=== PATIENT | male | born 1980 | race Caucasian/White ===

== ENCOUNTER 2019-12-08 14:06 | Emergency (ER) | payer OTHER, SELFPAY ==
[2019-12-08] VITALS (74 sets, daily range): BP systolic 127–177; BP diastolic 81–127; PULSE 57–112; RESP 10–28; TEMP 36.8; O2SAT 85–100
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
--- NOTE | ~2019-12-08 | CT_ITS ---
EXAMINATION: CT brain wo con DATE: 12/08/2019 14:48 INDICATION: Headache. Fall. TECHNIQUE: Computed tomography (CT) of the head was performed without intravenous contrast. The mA wa s adjusted according to patient size. Iterative reconstruction technique was employed. The dose-lengt h product was 605.33 mGy-cm. COMPARISON: Head CT 07/02/14 FINDINGS: There is low-attenuation in the anteroinferior frontal and temporal lobes, consistent with contusions. There is acute intraparenchymal hematoma in anteroinferior right frontal lobe. There is a small volume of acute hematoma at the anteroinferior aspect of the left frontal lobe. There is a sma ll focus of acute intracranial hematoma in anteroinferior left temporal lobe. There is acute subdural and subarachnoid hemorrhage anterior to right frontal and temporal lobes with greatest thickness of the extra-axial hemorrhage measuring 7 mm. There is no acute ischemic infarct or abnormal mass lesion . There is 5 mm leftward midline shift. The ventricles are normal in size. There is mild mucosal thic kening in the paranasal sinuses. The mastoid air cells are normal. The orbits are normal. IMPRESSION: 1. Hemorrhagic contusions of the anterior-inferior frontal and temporal lobes, worst at right frontal lobe. 2. 5 mm leftward midline shift. 3. I discussed this case with Dr. Valerio. Reviewed, dictated and finalized at location A.
--- NOTE | ~2019-12-08 | CT_ITS ---
EXAMINATION: CT cervical spine wo con DATE: 12/08/2019 14:53 INDICATION: Neck pain. Fall. TECHNIQUE: Computed tomography (CT) of the cervical spine was performed without intravenous contrast. Automated exposure control and iterative reconstruction technique were employed. The dose-length pro duct was 527.40 mGy-cm. COMPARISON: None FINDINGS: There is a stellate fracture of the occipital bone, predominantly on the left. Bone alignme nt is normal. Vertebral body heights and intervertebral disc heights are normal. There is multilevel mild facet joint osteoarthritis. No neural foraminal stenosis or central canal stenosis. IMPRESSION: 1. Stellate fracture of the occipital bone. 2. Mild facet joint osteoarthritis in cervical spine. Reviewed, dictated and finalized at location A.
[2019-12-08 14:36] LABS: Basophils Absolute Auto 0.1 K/mm3 (0.0-0.1); Basophils Percent Auto 0.3 % (0.2-1.2); Eosinophils Percent Auto 0.1 % (0-4.4); Hematocrit 51.5 % (42.0-52.0); Hemoglobin 18.1 g/dL (14.0-18.0); Immature Granulocyte Absolute 0.15 K/mm3 (0.00-0.031); Immature Granulocyte Percent A 0.9 % (0-0.5); Lymphocytes Absolute Auto 1.35 K/mm3 (0.9-3.2); Lymphocytes Percent Auto 7.7 % (18.3-44.2); Mean Corpuscular HGB Conc 35.1 g/dl (32-36); Mean Corpuscular Hemoglobin 31.9 pg (26-34); Mean Corpuscular Volume 90.8 fl (80-100); Mean Platelet Volume 10.7 fl (7.4-10.4); Monocytes Absolute Auto 1.7 K/mm3 (0.1-0.6); Monocytes Percent Auto 9.7 % (2.6-8.5); Neutrophils Absolute Auto 14.2 K/mm3 (1.3-6.7); Neutrophils Percent Auto 81.3 % (45.5-73.1); Platelet Count Result 275 k/mm3 (150-375); Red Blood Count 5.67 M/mm3 (4.6-6.20); Red Cell Distribution Width 12.4 % (11.5-14.5); White Blood Count 17.5 K/mm3 (4.5-10.0)
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
[2019-12-08 14:47] LABS: Alanine Aminotransferase 25 U/L (4-50); Albumin Level 4.5 g/dL (3.5-5.1); Alkaline Phosphatase 87 U/L (38-126); Anion Gap 10 mmol/L (8-16); Aspartate Amino Transferase 30 U/L (17-59); Bilirubin,Total 0.9 mg/dL (0.2-1.3); Blood Urea Nitrogen 12 mg/dL (9-20); Calcium 9.6 mg/dL (8.4-10.2); Carbon Dioxide 28 mmol/L (22-30); Chloride 96 mmol/L (98-107); Estimated CRCL calculation 98 ml/min; Estimated Glomerular Filt Rate > 60; Glucose 122 mg/dL (75-110); Sodium 134 mmol/L (137-145)
--- NOTE | 2019-12-08 15:43 | PC.NURSE ---
PT REPORT CALLED TO [facility] IN TAFT ED AT THIS TIME.
--- NOTE | 2019-12-08 15:57 | PC.NURSE ---
Addendum entered by Janina 12/08/19 16:12: correction on eta eta for lama is [id number] Original Note: [facility] will be transferring patient to [facility] [id number]
[2019-12-08] MEDS: SODIUM CHLORIDE 0.9% IV 1,000 ML 999 ML IV CONT (16:02)
[2019-12-08] MEDS: LABETALOL HCL INJ 100 MG/20 ML VIAL 20 MG IV PUSH ×3 (17:47→21:40)
--- NOTE | 2019-12-08 18:01 | PC.NURSE ---
new lama eta [id number]
[2019-12-08] MEDS: fentaNYL CITRATE INJ (*CRX) 100 MCG/2 ML VIAL 25 MCG IV PUSH (18:43)
--- NOTE | 2019-12-08 18:44 | PC.NURSE ---
contacted lama on a new eta [id number]
--- NOTE | 2019-12-08 18:54 | PC.NURSE ---
contacted [facility], [facility], [facility]. no one had an als rig available
--- NOTE | 2019-12-08 20:49 | PC.NURSE ---
SPOKE WITH SOMMER AT [facility] TO OBTAIN ETA STATUS, DUE TO INCOMING 911 CALLS EXCEEDING AVAILABILITY, NEW ETA IS APPROXIMATELY 22:00. HE INDICATED THAT IF PATIENT'S CONDITION CHANGES, TO PLEASE CALL IF WE NEED AN AMBULANCE EMERGENT.
--- NOTE | 2019-12-08 21:26 | PC.NURSE ---
erp dr west made aware of pt bp rising again and 10/10 headache. Verbal orders given.
--- NOTE | 2019-12-08 21:28 | PC.NURSE ---
per dr west verbal order for dilaudid 1mg, zofran 4mg, labetalol 20.
[2019-12-08] MEDS: ONDANSETRON INJ 4 MG/2 ML VIAL IV PUSH (21:39)
[2019-12-08] MEDS: HYDROmorphone HCL INJ (*CRX) 1 MG/ML SYR IV PUSH (21:40)
--- NOTE | 2019-12-08 22:29 | PC.NURSE ---
SPOKE WITH RADHA AT [facility] TO OBTAIN ETA STATUS, NEW ETA IS APPROXIMATELY 23:00 - 23:15.
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
--- NOTE | 2019-12-08 23:30 | PC.NURSE ---
Assumed care of pt at this time. Report from TONYA Steen.
--- NOTE | 2019-12-08 23:30 | PC.NURSE ---
SPOKE WITH RADHA AT [facility] TO OBTAIN ETA STATUS, NEW ETA IS APPROXIMATELY 01:15 - 01:30.
--- NOTE | 2019-12-08 23:35 | PC.NURSE ---
rn report given to
--- NOTE | 2019-12-08 23:47 | PC.NURSE ---
PT UPSET BECAUSE OF THE LONG WAIT TO TRANSFER PATIENT TO [facility]. STATES SO HE IS JUST GOING TO SIT THERE WITH HIS BRAIN BLEEDING, WE WERE TOLD HE WAS GOING TO TRANSFERED AT 5 .
--- NOTE | 2019-12-08 23:59 | PC.NURSE ---
This RN and big data lead Ly in to update pt and of ems transport status. Informed them ambulance ETA is 0115. Pt. asks So are you going to do nothing for him. This RN informed Pt.'s that the ambulance service has to respond to 911 calls or if an emergent patient needs transferred. Pt. updated that his CT scan has not changed since the last one.
[2019-12-09] VITALS (10 sets, daily range): BP systolic 128–147; BP diastolic 80–99; PULSE 67–88; RESP 16–24; O2SAT 95–99
[2019-12-09] MEDS: HYDROmorphone HCL INJ (*CRX) 1 MG/ML SYR IV PUSH (00:29)
--- NOTE | 2019-12-09 00:34 | PC.NURSE ---
Pt.'s family member on phone w/ RN requesting that pt be given mannitol. ERP notified. No further orders.
--- NOTE | 2019-12-09 00:43 | PC.NURSE ---
Checked with [facility] on ETA, while setting up transfer for another patient....ETA is still approximately 01:15 to 01:30 at this time.
== END 2019-12-09 01:20 | disposition short-term general hospital (02) ==
PROVIDERS: Emergency Provider Emergency Medicine; PCP Family Medicine
DX: S06.309A Unspecified focal traumatic brain injury with loss of consciousness of unspecified duration, initial encounter (principal); S02.119A Unspecified fracture of occiput, initial encounter for closed fracture; S80.212A Abrasion, left knee, initial encounter; S00.81XA Abrasion of other part of head, initial encounter; I10 Essential (primary) hypertension; Z87.891 Personal history of nicotine dependence
CPT/HCPCS: 36415; 70450; 72125; 80053; 85025; 96361; 96374; 96375; 96376; 99291; J1170; J2405; J3010; J7030

== ENCOUNTER 2021-03-05 17:21 | Emergency (ER) | payer BC, SELFPAY ==
--- NOTE | 2021-03-05 17:23 | PC.NURSE ---
patient left before being triaged stating the wait was too long
== END 2021-03-06 03:15 | disposition left against medical advice (07) ==
PROVIDERS: PCP Family Medicine
DX: Z53.21 Procedure and treatment not carried out due to patient leaving prior to being seen by health care provider (principal)
CPT/HCPCS: 99199

== ENCOUNTER 2021-06-20 14:48 | Emergency (ER) | payer SELFPAY ==
[2021-06-20 15:03] VITALS: BP 176/100; PULSE 88; RESP 16; TEMP 36.8; O2SAT 99
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
[2021-06-20] MEDS: SILVER SULFADIAZINE 1% CR 50 GM JAR (*BKC) 1 APPLIC TOPICAL (15:15)
[2021-06-20] MEDS: TETANUS,DIPHTHERIA,AC PERTUSSIS ADULT (0.5 ML) BOOSTRIX IM (15:21)
== END 2021-06-20 15:35 | disposition home or self-care (01) ==
PROVIDERS: Emergency Provider Nurse Practitioner; PCP Family Medicine
DX: T24.231A Burn of second degree of right lower leg, initial encounter (principal); T31.0 Burns involving less than 10% of body surface; I10 Essential (primary) hypertension; F17.210 Nicotine dependence, cigarettes, uncomplicated; Z23 Encounter for immunization; X17.XXXA Contact with hot engines, machinery and tools, initial encounter
CPT/HCPCS: 16020; 87070; 87205; 90471; 90715; 99213; A9270; G0463

== ENCOUNTER 2022-11-28 05:05 | Emergency (ER) | payer BC, OTHER, SELFPAY ==
--- NOTE | ~2022-11-28 | CT_ITS ---
EXAMINATION: CT abdomen pelvis w con DATE: 11/28/2022 06:39 INDICATION: Right lower back pain. TECHNIQUE: Computed tomography (CT) of the abdomen and pelvis was performed with 100 mL Omnipaque 350 intravenous contrast. Automated exposure control and iterative reconstruction technique were employe d. The dose-length product was 1028.07 mGy-cm. COMPARISON: PET/CT 01/27/2015, CT abdomen and pelvis 11/15/12 FINDINGS: The visualized portions of the lung bases demonstrate mild atelectasis. No pleural effusion . The heart size is normal. No pericardial effusion. There is a 2.6 cm mass in right hepatic lobe adriana suring soft tissue attenuation that measured 1.1 cm on 11/15/2012. There is a 1.3 cm mass in the right hepatic lobe measuring soft tissue attenuation that measured 1.1 cm in 11/15/2012. There is thickenin g of the wall of the fundus of the gallbladder, consistent with adenomyomatosis. The spleen, pancreas , adrenal glands, and kidneys are normal. There are no dilated loops of bowel. The appendix is normal . There are no pathologically enlarged lymph nodes. There is no free intraperitoneal fluid. There is mild thoracic and lumbar spondylosis. There is mild chronic anterior wedging of T11 and T12 vertebral bodies. 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 IMPRESSION: 1. Two liver masses with enlargement from 11/15/12, probably benign given the long time interval. Reviewed, dictated and finalized at location A. IMPRESSION: 1. Two liver masses with enlargement from 11/15/12, probably benign given the lo ng time interval.
[2022-11-28 05:06] VITALS: BP 171/95; PULSE 86; RESP 18; TEMP 36.7; O2SAT 100
--- NOTE | 2022-11-28 05:30 | ED.BACK ---
HPI - Back Pain/Injury General Chief Complaint: Back Pain/Injury Stated Complaint: R low back pain Time Seen by Provider: 11/28/22 05:26 History of Present Illness [facility] Narrative: Patient presents to the emergency department with concerns for persistent right flank pain. Initially he thought it was musculoskeletal however it has continued. He has not followed up with his primary care provider. He has been taking ibuprofen at home without improvement. Denies all other systems including hematuria frequency dysuria abdominal pain and vomiting. He felt febrile and had chills yesterday. He did not take his temperature. He sees urologist because he has a history of cancer Related Data Allergies Allergy/AdvReac Type Severity Reaction Status Date / Time morphine Allergy Intermediate HIVES Verified 06/06/22 07:14 poison truong extract Allergy Mild RASH Verified 06/06/22 07:14 lisinopril Allergy Unknown Dry Mouth Verified 06/06/22 07:14 tramadol AdvReac Intermediate Nausea and Verified 06/06/22 07:14 Vomiting Review of Systems Review of Systems: Review of systems negative except what is documented in the HPI [facility] Past Medical History Medical History Erectile dysfunction GUTIERREZ (generalized anxiety disorder) HTN (hypertension) Insomnia Tooth pain Family History Family History Mother Family history of malignant neoplasm of breast in first degree relative Social History Social History Social History: Smoking packs per day: 0.5 Smoking cigarettes per day: 10.0 Years smoked: 20 Smoking pack-years: 10.00 Smoking status: Current every day smoker Tobacco type: cigarettes Second hand tobacco smoke exposure: Yes Smoking end date: 11/12/19 Alcohol intake: current Alcohol use details: Occasionally Substance use: current Substance use type: marijuana Living arrangements: with family Occupation/Education: occupation Gender identity (if verbalized by the patient): Male Sexual Orientation (if Verbalized by the Patient): Straight or Heterosexual Exam Narrative: GENERAL: Well-appearing, well-nourished, and in no acute distress. HEAD: Normocephalic, atraumatic. EYES: PERRLA and EOMI. ENT: Nares clear, no rhinorrhea or epistaxis. Mucous membranes moist. NECK: Supple. Right flank tenderness CHEST: Clear to auscultation. No respiratory distress. HEART: Regular rate and rhythm. ABDOMEN: Soft, nontender, nondistended. EXTREMITIES: Normal range of motion. No edema. SKIN: Warm, dry, no rash. NEURO: No focal deficits. Alert and oriented x3. PSYCH: Normal mood and affect. Course Course Emergency Course: Patient is concerned about how long he will be in the emergency department. Advised we can start with urinalysis and labs. Differential diagnosis includes but not limited to musculoskeletal pain, pyelonephritis, kidney stone Vital Signs Vital signs: Vital Signs Temperature 36.7 C 11/28/22 05:06 Pulse Rate 86 11/28/22 05:06 Respiratory Rate 18 11/28/22 05:06 Blood Pressure 171/95 H 11/28/22 05:06 Pulse Oximetry 100 11/28/22 05:06 Oxygen Delivery Room Air 11/28/22 05:06 Temperature 36.7 C 11/28/22 05:06 Pulse Rate 86 11/28/22 05:06 Respiratory Rate 18 11/28/22 05:06 Blood Pressure 171/95 H 11/28/22 05:06 Pulse Oximetry 100 11/28/22 05:06 Oxygen Delivery Room Air 11/28/22 05:06 MDM - Back Pain/Injury MDM Narrative Medical decision making narrative: Labs ordered and reviewed. CBC CMP and urinalysis grossly unremarkable. No explanation for patient's discomfort. CT pending. Lab Data 11/28/22 05:37 11/28/22 05:37 Labs: Lab Results 11/28/22 11/28/22 Range/Units 05:37 05:51 WBC 8.2 (4.5-10.0) K/mm3 RBC 5.77 (4.6-6.20) M/mm
[2022-11-28 05:44] LABS: Basophils Absolute Auto 0.1 K/mm3 (0.0-0.1); Basophils Percent Auto 1.6 % (0.2-1.2); Eosinophils Absolute Auto 0.1 K/mm3 (0-0.3); Eosinophils Percent Auto 0.9 % (0-4.4); Hematocrit 50.9 % (42.0-52.0); Immature Granulocyte Absolute 0.15 K/mm3 (0.00-0.031); Immature Granulocyte Percent A 1.8 % (0-0.5); Lymphocytes Absolute Auto 2.05 K/mm3 (0.9-3.2); Lymphocytes Percent Auto 25.1 % (18.3-44.2); Mean Corpuscular HGB Conc 35.4 g/dl (32-36); Mean Corpuscular Hemoglobin 31.2 pg (26-34); Mean Corpuscular Volume 88.2 fl (80-100); Mean Platelet Volume 10.7 fl (7.4-10.4); Monocytes Absolute Auto 0.8 K/mm3 (0.1-0.6); Monocytes Percent Auto 9.4 % (2.6-8.5); Neutrophils Percent Auto 61.2 % (45.5-73.1); Platelet Count Result 254 k/mm3 (150-375); Red Blood Count 5.77 M/mm3 (4.6-6.20); Red Cell Distribution Width 12.5 % (11.5-14.5); White Blood Count 8.2 K/mm3 (4.5-10.0)
[2022-11-28] MEDS: KETOROLAC 30 MG/ML VIAL (*BKC) IM (05:44)
[2022-11-28] MEDS: ONDANSETRON INJ 4 MG/2 ML VIAL IV PUSH (05:45)
[2022-11-28] MEDS: LIDOCAINE 5% PATCH 1 PATCH TRANSDERM (05:45)
[2022-11-28 05:55] LABS: Alanine Aminotransferase 63 U/L (6-50); Albumin Level 4.5 g/dL (3.5-5.1); Alkaline Phosphatase 84 U/L (38-126); Anion Gap 7 mmol/L (8-16); Aspartate Amino Transferase 38 U/L (17-59); Bilirubin,Total 0.6 mg/dL (0.2-1.3); Blood Urea Nitrogen 20 mg/dL (9-20); Calcium 9.3 mg/dL (8.4-10.2); Carbon Dioxide 26 mmol/L (22-30); Chloride 103 mmol/L (98-107); Estimated CRCL calculation 103 ml/min; Estimated Glomerular Filt Rate > 60; Glucose 103 mg/dL (65-110); Potassium 4.5 mmol/L (3.4-5.0); Sodium 136 mmol/L (137-145)
[2022-11-28 06:05] LABS: Bacteria Urine None Seen /hpf; Non Pathogenic Casts 0-2; RBC Urine 0-2 /hpf (0-2); Squamous Epithelial Cell Urine None seen /hpf (Few); WBC Urine 0-5 /hpf
[2022-11-28 06:19] LABS: Amphetamine Screen Urine Negative (Negative); Barbiturate Screen Urine Negative (Negative); Benzodiazepines Screen Urine Negative (Negative); Cannabinoid Screen Urine Negative (Negative); Cocaine Screen Urine Negative (Negative); Methadone Screen Urine Negative (Negative); Opiate Screen Urine Negative (Negative); Phencyclidine Screen Urine Negative (Negative)
[2022-11-28 06:21] LABS: Appearance Urine Clear (Clear); Bilirubin Urine Negative (Negative); Blood Urine Trace-intact (Negative); Color Urine Yellow (Yellow); Glucose Urine UA Negative (Negative); Ketones Urine Negative (Negative); Leukocyte Esterase Ur Negative LEU/UL (Negative); Nitrate Urine Negative (Negative); Protein Urine Negative (Negative); Urobilinogen Urine 0.2 mg/dL (<2.0); pH Urine 5.5 (5.0-9.0)
[2022-11-28 06:25] LABS: Add Urine Microscopic? YES
== END 2022-11-28 07:51 | disposition home or self-care (01) ==
PROVIDERS: Emergency Provider Emergency Medicine; PCP Family Medicine
DX: R10.9 Unspecified abdominal pain (principal); I10 Essential (primary) hypertension; R16.0 Hepatomegaly, not elsewhere classified; F17.210 Nicotine dependence, cigarettes, uncomplicated; F41.9 Anxiety disorder, unspecified
CPT/HCPCS: 36415; 74177; 80053; 80307; 81001; 85025; 96372; 96374; 99284; A9270; J1885; J2405; Q9967

== ENCOUNTER 2023-07-03 18:56 | Emergency (ER) | payer OTHER, SELFPAY ==
[2023-07-03 19:14] VITALS: BP 149/99; PULSE 63; RESP 16; TEMP 36.3; O2SAT 100
--- NOTE | 2023-07-03 19:35 | ED.DENTAL ---
HPI - Dental/Oral General Chief complaint: Upper Respiratory Infection Stated complaint: left side face pain,swollen Time Seen by Provider: 07/03/23 19:35 Source: patient, RN notes reviewed and old records reviewed Mode of arrival: ambulatory Limitations: no limitations History of Present Illness HPI Narrative: 43-year-old male presents to the [facility] with left-sided facial pain and swelling, cheek area. States this started 2-3 weeks ago, got worse on Sunday. Denies fevers does swelling to cheek. Also reports ear ear pain, and left incisor and cuspid teeth discomfort when chewing. Reports pain is in above the gumline. Mild swelling noted to the cheek area. No erythema, ecchymosis. Patient denies trauma. Related Data Allergies Allergy/AdvReac Type Severity Reaction Status Date / Time morphine Allergy Intermediate HIVES Verified 07/03/23 19:24 poison truong extract Allergy Mild RASH Verified 07/03/23 19:24 lisinopril Allergy Unknown Dry Mouth Verified 07/03/23 19:24 tramadol AdvReac Intermediate Nausea and Verified 07/03/23 19:24 Vomiting Review of Systems Review of Systems: All systems reviewed & are unremarkable except as noted in HPI and below Constitutional: Constitutional: Reports no additional constitutional complaints Eyes: Eyes: Reports no additional eye complaints ENT: Reports system reviewed and no additional complaints, except as documented Cardiovascular: Cardiovascular: Reports no additional cardiovascular complaints, Denies chest pain and Denies dyspnea Respiratory: Respiratory: Reports no additional respiratory complaints, Denies chest congestion, Denies cough and Denies dyspnea Gastrointestinal: Gastrointestinal: Reports no additional gastrointestinal complaints, Denies abdominal pain, Denies nausea and Denies vomiting Musculoskeletal: Musculoskeletal: Reports as per HPI Integumentary/Breasts: Skin/Breast: Reports system reviewed and no additional complaints, except as docu Neurologic: Reports system reviewed and no additional complaints, except as documented Psychiatric: Psychiatric: Reports no additional psychiatric complaints Allergic/Immunologic: Allergic/Immunologic: Reports no additional allergic/immunologic complaints [facility] Past Medical History Medical History Erectile dysfunction GUTIERREZ (generalized anxiety disorder) HTN (hypertension) Insomnia Tooth pain Family History Family History Mother Family history of malignant neoplasm of breast in first degree relative Social History Social History Social History: Smoking packs per day: 0.5 Smoking cigarettes per day: 10.0 Years smoked: 20 Smoking pack-years: 10.00 Smoking status: Current every day smoker Tobacco type: cigarettes Second hand tobacco smoke exposure: Yes Smoking end date: 11/12/19 Alcohol intake: current Alcohol use details: Occasionally Substance use: current Substance use type: marijuana Living arrangements: with family Occupation/Education: occupation Gender identity (if verbalized by the patient): Male Sexual Orientation (if Verbalized by the Patient): Straight or Heterosexual Comments At the time of my signature, I reviewed and agree with the nursing past medical, surgical, social, and family history. There is no relevant family history pertinent to the patient complaint. Exam Const: General: cooperative, healthy appearing, comfortable, no acute distress, well developed, alert and well nourished Nutritional Appearance: well nourished Orientation/consciousness: patient oriented x3 Limitations: no limitations HENMT: Head: normal to inspection Ears: hearing grossly normal bilaterally, external ears normal, TM's normal bilaterally, EAC's normal, mastoids normal and no periauricular adenopathy Face/Nose/Sinus: Nor
== END 2023-07-03 19:57 | disposition home or self-care (01) ==
PROVIDERS: Emergency Provider Nurse Practitioner; PCP Family Medicine
DX: J32.9 Chronic sinusitis, unspecified (principal); Z87.891 Personal history of nicotine dependence; F12.90 Cannabis use, unspecified, uncomplicated; I10 Essential (primary) hypertension
CPT/HCPCS: 99213; G0463

== ENCOUNTER 2024-04-09 14:58 | Emergency (ER) | payer SELFPAY ==
[2024-04-09 15:25] VITALS: BP 149/93; PULSE 83; RESP 18; TEMP 36.3; O2SAT 100
--- NOTE | 2024-04-09 16:09 | ED.DENTAL ---
HPI - Dental/Oral General Chief complaint: Dental/Oral Stated complaint: Dental Pain Time Seen by Provider: 04/09/24 16:09 Source: patient, RN notes reviewed and old records reviewed Mode of arrival: ambulatory Limitations: no limitations History of Present Illness HPI Narrative: Patient presents with complaints of right lower tooth pain that has been present for approximately 1 month. He states this is not the 1st time this site has become painful and infected. He reports that he has been taking ?left over? amoxicillin for the past week and ?eating ibuprofen like candy? and has applied a temporary filling to the right lower molars. He denies any injury or trauma. He has no associated facial swelling. He denies any fever, chills, sweats Related Data Allergies Allergy/AdvReac Type Severity Reaction Status Date / Time morphine Allergy Intermediate HIVES Verified 07/03/23 19:24 poison truong extract Allergy Mild RASH Verified 07/03/23 19:24 lisinopril Allergy Unknown Dry Mouth Verified 07/03/23 19:24 tramadol AdvReac Intermediate Nausea and Verified 07/03/23 19:24 Vomiting Review of Systems Review of Systems: All systems reviewed & are unremarkable except as noted in HPI and below Constitutional: Constitutional: Reports no additional constitutional complaints ENT: Reports system reviewed and no additional complaints, except as documented and Reports dental pain Cardiovascular: Cardiovascular: Reports no additional cardiovascular complaints Respiratory: Respiratory: Reports no additional respiratory complaints Gastrointestinal: Gastrointestinal: Reports no additional gastrointestinal complaints [facility] Past Medical History Medical History Erectile dysfunction GUTIERREZ (generalized anxiety disorder) HTN (hypertension) Insomnia Tooth pain Family History Family History Mother Family history of malignant neoplasm of breast in first degree relative Social History Social History Social History: Smoking packs per day: 0.5 Smoking cigarettes per day: 10.0 Years smoked: 20 Smoking pack-years: 10.00 Smoking status: Current every day smoker Tobacco type: cigarettes Second hand tobacco smoke exposure: Yes Smoking end date: 11/12/19 Alcohol intake: current Alcohol use details: Occasionally Substance use: current Substance use type: marijuana Living arrangements: with family Occupation/Education: occupation Gender identity (if verbalized by the patient): Male Sexual Orientation (if Verbalized by the Patient): Straight or Heterosexual Comments At the time of my signature, I reviewed and agree with the nursing past medical, surgical, social, and family history. There is no relevant family history pertinent to the patient complaint. Exam Const: General: no acute distress, alert, awake and combative (verbally) Orientation/consciousness: oriented to person, oriented to place and oriented to time HENMT: Head: normal to inspection Ears: TM's normal bilaterally Mouth: Yes moist mucous membranes Teeth and gingiva: caries (Multiple, right lower, associated gingival swelling) and fair dentition Resp: Effort & Inspection: normal respiratory effort and able to speak in complete sentences Auscultation: clear to auscultation bilaterally, no crackles, no rales, no rhonchi and no wheezes Cardio: Palpation: normal PMI Rate: regular rate Rhythm: regular rhythm Heart sounds: S1 normal heart sound present and S2 normal heart sound present Neuro: General: oriented to person, oriented to place and oriented to time Cranial nerves: Yes CN's II-XII intact bilaterally Psych: Appearance: grossly normal Thought process: Normal thought process present Insight: Good insight present (Psych) Judgement: Good judgement present (Psych) Course Course Level of Care: Express Care Visit Vital Signs Vital signs: Vital Signs Temperature 97.4 F L 04/09/24 15:25 Pulse Rate 83 04/09/24 15:25 Respiratory Rate 18 04/09/24 15:25 Blood Pressure 149/93 H 04/09/24 15:25 Pulse Oximetry 100 04/09/24 15:25 Oxygen Delivery Room Air 04/09/24 15:25 Temperature 97.4 F L 04/09/24 15:25 Pulse Rate 83 04/09/24 15:25 Respiratory Rate 18 04/09/24 15:25 Blood Pressure 149/93 H 04/09/24 15:25 Pulse Oximetry 100 04/09/24 15:25 Oxygen Delivery Room Air 04/09/24 15:25 Reviewed MDM - Dental/Oral MDM Narrative Medical decision making narrative: Patient with dental infection, right lower. Has been taking amoxicillin and ibuprofen. No associated facial swelling, but does have some gingival swelling. Start 7 day course of clindamycin. Patient advised to follow package instructions when taking [id number] pain relievers. Further advised to follow with primary care provider regarding blood pressure and his dentist regarding his dental infection. Discharge instructions reviewed with patient, as well as provided in writing per nursing staff. The instructions also include specific and strict return/GO TO THE ER as well as f/u information. All questions have been answered, and the patient deny any further questions with discharge and discharge plan. Some parts of this dictation were generated by voice recognition software and may contain typographical and/or grammatical inaccuracies. Differential Diagnosis Differential diagnosis: Likely gingival abscess, dental caries and toothache Medical Records Attestation: I reviewed the patient's medical records. Discharge Plan Discharge Clinical Impression: Dental infection, Elevated blood pressure reading Patient Disposition: Home, Self-Care Condition: Stable Instructions: Antibiotic Form, Toothache (ED) Additional Instructions: Take medications as prescribed. Follow-up with primary care provider regarding elevated blood pressure. Follow-up with dentist for your tooth. This infection will continue to reoccur without dental treatment. Use [id number] pain medication per package instructions Patient Language: Serbian Prescriptions: New clindamycin HCl [Cleocin HCl] 300 mg capsule 300 mg PO BID Qty: 14 0RF No Action tadalafil 5 mg tablet 5 mg PO DAILY Qty: 30 5RF Follow-up/Referrals: Pippa,Pascale Vega APRN [Primary Care Provider] - 1 Week (elevated blood pressure) Time of Disposition: 16:18
== END 2024-04-09 16:30 | disposition home or self-care (01) ==
PROVIDERS: Emergency Provider Nurse Practitioner Family; PCP Nurse Practitioner
DX: K04.7 Periapical abscess without sinus (principal); I10 Essential (primary) hypertension; F12.90 Cannabis use, unspecified, uncomplicated; Z87.891 Personal history of nicotine dependence
CPT/HCPCS: 99213; G0463

== ENCOUNTER 2024-08-26 14:20 | Emergency (ER) | payer OTHER, SELFPAY ==
[2024-08-26 14:28] VITALS: BP 149/99; PULSE 82; RESP 16; TEMP 36.7; O2SAT 100
--- NOTE | 2024-08-26 14:29 | ED_ITS ---
HPI - Skin/Abscess/Foreign Bdy General Chief complaint: Skin/Abscess/Foreign Body Stated complaint: rash on arm Time Seen by Provider: 08/26/24 14:25 Source: patient Mode of arrival: ambulatory Limitations: no limitations History of Present Illness HPI narrative: Patient is a 44-year-old male who presents with rash on bilateral arms for 4 days. Reports rashes itching and worsens in the sun. Also having a right lower dental pain. Patient states he took 3 doses of amoxicillin with mild relief. Denies any fever, chills, nausea, vomiting, diarrhea. Related Data Allergies Allergy/AdvReac Type Severity Reaction Status Date / Time morphine Allergy Intermediate HIVES Verified 08/26/24 14:32 poison truong extract Allergy Mild RASH Verified 08/26/24 14:32 lisinopril Allergy Unknown Dry Mouth Verified 08/26/24 14:32 tramadol AdvReac Intermediate Nausea and Verified 08/26/24 14:32 Vomiting Review of Systems Review of Systems: All systems reviewed & are unremarkable except as noted in HPI and below Constitutional: Constitutional: Denies body ache(s), Denies chills, Denies fatigue, Denies fever(s), Denies headache(s), Denies malaise and Denies weakness Eyes: Eyes: Denies blurry vision, Denies irritation and Denies loss of vision ENT: Denies otalgia, Reports facial pain (Dental pain), Denies headache(s), Denies nasal discharge, Denies sinus pain and Denies sore throat Cardiovascular: Cardiovascular: Denies chest pain, Denies irregular heart rhythm and Denies dyspnea Respiratory: Respiratory: Denies dyspnea Gastrointestinal: Gastrointestinal: Denies abdominal pain, Denies melena, Denies hematochezia, Denies diarrhea, Denies nausea and Denies vomiting Musculoskeletal: Musculoskeletal: Denies back pain, Denies myalgias and Denies arthralgias Integumentary/Breasts: Skin/Breast: Reports pruritus and Reports rash Neurologic: Denies headache(s), Denies loss of vision and Denies weakness Psychiatric: Psychiatric: Reports no additional psychiatric complaints Endocrine: Endocrine: Denies fatigue PMFSH Past Medical History Medical History Insomnia Tooth pain Erectile dysfunction GUTIERREZ (generalized anxiety disorder) HTN (hypertension) Family History Family History Mother Family history of malignant neoplasm of breast in first degree relative Social History Social History Social History: Smoking packs per day: 0.5 Smoking cigarettes per day: 10.0 Years smoked: 20 Smoking pack-years: 10.00 Smoking status: Current every day smoker Tobacco type: cigarettes Second hand tobacco smoke exposure: Yes Smoking end date: 11/12/19 Alcohol intake: current Alcohol use details: Occasionally Substance use: current Substance use type: marijuana Living arrangements: with family Occupation/Education: occupation Gender identity (if verbalized by the patient): Male Sexual Orientation (if Verbalized by the Patient): Straight or Heterosexual Comments At time of signature, agree with nursing past medical, surgical, social and family history. There is no relevant family history pertinent to the presenting complaint. Exam Const: General: cooperative, healthy appearing, comfortable, no acute distress and well nourished Nutritional Appearance: well nourished Orientation/consciousness: patient oriented x3 Limitations: no limitations HENMT: Head: normal to inspection, normocephalic and atraumatic Ears: hearing grossly normal bilaterally and external ears normal Face/Nose/Sinus: Normal external nose present, normal facial exam and face symmetric Face and sinus: normal facial exam and face symmetric Mouth: Yes lip normal Teeth and gingiva: abnormal tooth and associated gingiva lower right third molar tender and with associated gingival edema, caries and poor dentition Eyes: General: appearance normal, both eyes and all related structures Alignment and Position: alignment normal and position normal Periorbital: periorbital findings normal Eyelids: eyelids normal Pupils: Equal, round and reactive pupils present EOM: EOMs intact bilaterally Neck: Neck: normal visual inspection, full ROM and supple Chest: Chest palpation & inspection: normal inspection of the chest Resp: Effort & Inspection: normal respiratory effort and able to speak in complete sentences Auscultation: clear to auscultation bilaterally Cardio: Rate: regular rate Rhythm: regular rhythm Heart sounds: S1 normal heart sound present and S2 normal heart sound present GI: Inspection: normal to inspection Skin: General skin exam: normal color Rashes: rashes noted papules bilateral forearm arrangement grouped, borders sharp and irregular, color red and surface erythematous Neuro: General: patient oriented x3 and moves all extremities Cranial nerves: Yes Equal, round and reactive pupils present Speech: normal speech Gait exam (Neuro): Normal gait present Extrem: General: normal to inspection, full ROM and no edema Psych: Appearance: grossly normal and well kempt Mental Status: mental status grossly normal Speech and movement: Normal speech and movement present Affect: normal affect Attitude: cooperative Thought process: Normal thought process present Course Course Emergency Course: Patient is aware of diagnosis, understands and agrees to treatment plan. Anticipatory guidance given. Patient agrees to follow-up as directed and is aware of reasons to seek care at the emergency department. Portions of this record may have been created with voice recognition software Level of Care: Express Care Visit Vital Signs Vital signs: Vital Signs Temperature 36.7 C 08/26/24 14:28 Pulse Rate 82 08/26/24 14:28 Respiratory Rate 16 08/26/24 14:28 Blood Pressure 149/99 H 08/26/24 14:28 Pulse Oximetry 100 08/26/24 14:28 Oxygen Delivery Room Air 08/26/24 14:28 Temperature 36.7 C 08/26/24 14:28 Pulse Rate 82 08/26/24 14:28 Respiratory Rate 16 08/26/24 14:28 Blood Pressure 149/99 H 08/26/24 14:28 Pulse Oximetry 100 08/26/24 14:28 Oxygen Delivery Room Air 08/26/24 14:28 Reviewed MDM - Skin/Abscess/Foreign Bdy MDM Narrative Medical decision making narrative: Will treat both complaints. Will treat with antibiotics for dental abscess along with steroids for contact dermatitis Pt well hydrated appearing, in no respiratory distress, hemodynamically stable. Recommend supportive care. The patient is stable at time of discharge the clinical impression was discussed and the patient was given the opportunity to ask questions, which were addressed as completely as possible given the information available at present. Anticipatory guidance and return to care precautions were discussed and the importance of primary care follow-up was stressed and encouraged. The patient voiced understanding of the plan, indications to return, and the need for follow-up. Exam findings show no acute concerns or changes Patient is appropriate for outpatient treatment and follow-up. Differential Diagnosis Differential diagnosis: Likely viral exanthem, urticaria, allergic reaction to drug, cellulitis, insect bites, contact dermatitis and other (Dental abscess) Medical Records Attestation: I reviewed the patient's medical records. Discharge Plan Discharge Clinical Impression: Dental infection Contact dermatitis Qualifiers: Contact dermatitis type: unspecified Contact dermatitis trigger: unspecified trigger Qualified Code(s): L25.9 - Unspecified contact dermatitis, unspecified cause Patient Disposition: Home Condition: Stable Instructions: Contact Dermatitis (ED) Additional Instructions: The most important part of your care is follow up with Primary care provider. Take Benadryl 25-50 mg every 6 hours for itching Take Claritin, Zyrtec, or Milla daily for the next 7 days Take the steroids starting in the morning Avoid hot showers, Take cool showers. Wash the area with gentle soap and water only. Use skin cream as prescribed to reduce itchiness Avoid scratching when possible to prevent worsening of the condition and disruption of the skin that could lead to bacterial infection To relieve itching, place a cool washcloth or some ice over the area that itches, rather than scratching Follow up with primary care provider or seek ER if you have trouble breathing, become hoarse, or start wheezing, develop belly cramps, vomiting or feel dizzy. Take antibiotic until it's gone. Brushing teeth at least twice daily with gentle flossing. Avoid temperature extremes---when you eat. Salt gargle to rinse your mouth after every meal You may apply ice to the face to reduce pain/swelling. For pain, you may take: Tylenol 650-1000mg by mouth every 4-6 hours. Do not exceed 4000mg in 24 hours. Advil (Ibuprofen) 600 mg by mouth every 6 hours. Do not exceed 2400mg in 24 hours. Also, recommend regular dental check up one-two times a year to prevent tooth decay and other periodontal disease. Follow-up with the dentist as soon as possible--see the list provided Your blood pressure was elevated above 120/80 today at Urgent Care. This puts you above the threshold for follow up visit with a primary care provider. High blood pressure does not usually cause any symptoms, however it may lead to kidney failure, stroke, heart disease just to name a few if untreated . Many people are anxious when seeing a provider or nurse. As a result, you are not diagnosed with hypertension at this time unless your blood pressure is persistently high at two office visits at least one week apart. Some things that can help lower blood pressure are lifestyle modifications, such as light exercise, decreased salt in diet, and weight loss. It is important to follow up with a PCP about this within 1 week. Patient Language: Maltese Prescriptions: New prednisone 10 mg tablet See Rx Instructions .ROUTE .COMPLEX Qty: 21 0RF Rx Instructions: 40 mg daily for 3 days, 20 mg daily for 3 days, 10 mg daily for 3 days amoxicillin-pot clavulanate 875-125 mg tablet 1 tablet PO Q12H 10 Days Qty: 20 0RF No Action tadalafil 5 mg tablet 5 mg PO DAILY Qty: 30 5RF Follow-up/Referrals: Pippa,Pasclae Vega APRN [Primary Care Provider] - 3 Days Time of Disposition: 15:46
== END 2024-08-26 15:51 | disposition home or self-care (01) ==
PROVIDERS: Emergency Provider Nurse Practitioner Family; PCP Nurse Practitioner
DX: K04.7 Periapical abscess without sinus (principal); L25.9 Unspecified contact dermatitis, unspecified cause; Z87.891 Personal history of nicotine dependence; I10 Essential (primary) hypertension
CPT/HCPCS: 99213; G0463